=== PATIENT | female | born 1945 | race Caucasian/White ===

== ENCOUNTER 2024-03-31 11:54 | Emergency (ER) | payer OTHER, SELFPAY ==
[2024-03-31 11:54] VITALS: BP 137/74; PULSE 87; RESP 14; TEMP 36.8; O2SAT 97; BMI 21.6
--- NOTE | 2024-03-31 12:13 | EX.ED.GENINJ ---
HPI <JOAO Lee Last Filed: 03/31/24 13:42> History of Present Illness Chief Complaint: Fall Narrative Narrative: Patient presenting today with pain to her left ankle and right wrist after mechanical fall that occurred while hiking with her grandchildren this morning. She reports that she tripped and twisted her left ankle and felt a pop, she tried to catch herself with an outstretched right hand and injured her right wrist. She also has an abrasion to her right forearm, tetanus is not up-to-date. She did not hit her head, she denies LOC. She did start to feel lightheaded from the pain while on the ground but this did resolve. She is able to ambulate although it is difficult. PFSH <JOAO Lee Last Filed: 03/31/24 13:42> [facility] Medical History no medical history Allergy/AdvReac Type Severity Reaction Status Date / Time Sulfa (Sulfonamide Allergy RASH Verified 03/31/24 11:55 Antibiotics) Social History Smoking Status: Never smoker ROS <JOAO Lee Last Filed: 03/31/24 13:42> ROS ED Constitutional Constitutional ED: Denies chills or fever(s) Cardiovascular Cardiovascular: Denies chest pain Respiratory/Chest Respiratory/Chest: Denies cough or dyspnea Gastrointestinal Gastrointestinal: Denies abdominal pain, nausea or vomiting Musculoskeletal Musculoskeletal: Reports arthralgias Integumentary Reports Abrasions Neurologic Neurologic: Denies paresthesias EXAM <JOAO Lee Last Filed: 03/31/24 13:42> Physical Exam Const Vital Signs: 03/31/24 11:54 03/31/24 12:25 03/31/24 13:21 Temperature 98.3 F 98 F Temperature Source Temporal Pulse Rate 87 79 Respiratory Rate 14 16 Respiratory Effort Normal Blood Pressure 137/74 H 159/79 H Blood Pressure Mean 95 105 Pulse Ox 97 98 Oxygen Delivery Method Room Air Room Air Positive well nourished, well developed and no apparent distress General Appearance ED: well developed HEENT Reports normocephalic and head/scalp atraumatic Mouth ED: Yes moist mucous membranes normal Eyes PERRL and EOMs intact bilaterally Neck full ROM and supple Chest Wall inspection of chest normal Resp normal respiratory effort and clear to auscultation bilaterally Cardio regular rate and regular rhythm GI soft to palpation, non-tender, non-distended and no masses Back/Spine normal ROM and normal to inspection Extremity Extremity Narrative: Swelling to the left lateral malleolus and proximal aspect of the dorsum of the left foot with surrounding ecchymosis. Limited range of motion to the left ankle due to pain. Ecchymosis to the dorsal and radial aspect of the right wrist. Left DP and right radial pulse 2+, good capillary refill, sensation intact. Neuro oriented x3, CN's II-XII intact bilaterally, moves all extremities, no focal motor deficits and no sensory deficits noted Sensorium / Orientation: awake and alert Psych mental status grossly normal and thought process normal Skin Skin Narrative: Small skin tear to the right medial forearm, no active bleeding. <Dr. Yordan Helton MD - Last Filed: 03/31/24 12:28> Physical Exam Const Vital Signs: 03/31/24 11:54 03/31/24 12:25 03/31/24 13:21 Temperature 98.3 F 98 F Temperature Source Temporal Pulse Rate 87 79 Respiratory Rate 14 16 Respiratory Effort Normal Blood Pressure 137/74 H 159/79 H Blood Pressure Mean 95 105 Pulse Ox 97 98 Oxygen Delivery Method Room Air Room Air PROC <JOAO Lee - Last Filed: 03/31/24 13:42> Procedures Upper Extremity Splints Upper Extremity Splint: Orthoglass and - (AP splint) Location: Right [facility] <JOAO Lee - Last Filed: 03/31/24 13:42> [facility] Narrative Medical decision making narrative: Patient presenting with left ankle and right wrist pain after mechanical fall that occurred this morning while hiking. She tripped and twisted her left ankle and try to catch herself with an outstretched right hand. X-ray of the left ankle, foot, and right hand will be obtained to rule out fracture. She was given Tylenol for pain. Tetanus updated and her abrasion was cleaned and bandaged with bacitracin ointment. The attending physician is reading the right wrist films as a possible fracture to the distal radius. She was placed in an AP well-padded splint, good capillary refill post splinting. She was given an Aircast for her left ankle sprain. She will be given an orthopedic referral to follow-up with, RICE instructions were discussed, she can take Tylenol for pain as needed. She will be discharged home in stable condition. I have personally performed a face to face assessment of the patient and have reviewed the KEIKO Note. I performed a substantive portion of the visit including all aspects of the following. My shahid findings include: History is 78-year-old female was hiking when she tripped and fell injuring her right wrist and left ankle. No LOC. No prior history of surgery to her wrist or her ankle. Denies any other complaints. [place] fine prior to tripping and falling. Exam is [well-appearing 78-year-old female. Vital signs stable afebrile. H EENT exam pupils round reactive light. No signs of trauma to her face or scalp. Nontender. Neck nontender. Back nontender. Lungs clear to auscultation bilaterally. Heart regular rhythm rate about 85 no murmur. Chest wall and ribs nontender. Abdomen soft nontender. Pelvic girdle intact. He is able to flex extend either hip or knee. Upper extremities left upper extremity nontender normal video and sound recorder strength. Normal range of motion. Right wrist tenderness and swelling and bruise on the distal radius. Limited flexion extension due to pain. She is able to open close her hand without difficulty. Right lower extremity hip, knee ankle and foot are nontender. Normal range of motion. Her left hip and knee are nontender. Left ankle is swollen and bruised laterally. Limited dorsi and plantarflexion due to pain. Achilles tendon is intact. Medially nontender. Able to wiggle her toes. Normal touch sensation. Neurologically she is awake and alert. Answering questions and following commands. GCS of 15. She also has a skin tear on her right elbow which will be need to be cleaned and dressed but not repaired.] Medical Decision Making [78-year-old fall right wrist x-ray. Left ankle and foot x-ray to rule out fractures. Tylenol for pain.] Other additions or changes: [None] Radiography Diagnostic Testing: Clinical Impression(s) from Imaging Studies Ankle X-Ray 03/31/24 12:25 IMPRESSION: Osteopenia, no demonstrated fracture or suspicious osseous lesion Extensive lateral soft tissue swelling suggests ankle sprain, however a subtle occult fracture cannot be excluded. 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 Yordan Helton MD - Last Filed: 03/31/24 12:28> [facility] Narrative Medical decision making narrative: Patient presenting with left ankle and right wrist pain after mechanical fall that occurred this morning while hiking. She tripped and twisted her left ankle and try to catch herself with an outstretched right hand. X-ray of the left ankle, foot, and right hand will be obtained to rule out fracture. She was given Tylenol for pain. Tetanus updated and her abrasion was cleaned. I have personally performed a face to face assessment of the patient and have reviewed the KEIKO Note. I performed a substantive portion of the visit including all aspects of the following. My shahid findings include: History is 78-year-old female was hiking when she tripped and fell injuring her right wrist and left ankle. No LOC. No prior history of surgery to her wrist or her ankle. Denies any other complaints. [place] fine prior to tripping and falling. Exam is [well-appearing 78-year-old female. Vital signs stable afebrile. H EENT exam pupils round reactive light. No signs of trauma to her face or scalp. Nontender. Neck nontender. Back nontender. Lungs clear to auscultation bilaterally. Heart regular rhythm rate about 85 no murmur. Chest wall and ribs nontender. Abdomen soft nontender. Pelvic girdle intact. He is able to flex extend either hip or knee. Upper extremities left upper extremity nontender normal video and sound recorder strength. Normal range of motion. Right wrist tenderness and swelling and bruise on the distal radius. Limited flexion extension due to pain. She is able to open close her hand without difficulty. Right lower extremity hip, knee ankle and foot are nontender. Normal range of motion. Her left hip and knee are nontender. Left ankle is swollen and bruised laterally. Limited dorsi and plantarflexion due to pain. Achilles tendon is intact. Medially nontender. Able to wiggle her toes. Normal touch sensation. Neurologically she is awake and alert. Answering questions and following commands. GCS of 15. She also has a skin tear on her right elbow which will be need to be cleaned and dressed but not repaired.] Medical Decision Making [78-year-old fall right wrist x-ray. Left ankle and foot x-ray to rule out fractures. Tylenol for pain.] Other additions or changes: [None] History & Record Review Discussion w/independent historian: Patient and Family Additional record(s) reviewed:: Prior inpatient record, Prior outpatient record, Prior ED visit and Prior labs Radiography Diagnostic Testing: Clinical Impression(s) from Imaging Studies Ankle X-Ray 03/31/24 12:25 IMPRESSION: Osteopenia, no demonstrated fracture or suspicious osseous lesion Extensive lateral soft tissue swelling suggests ankle sprain, however a subtle occult fracture cannot be excluded. 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 Electronically Signed: Davon Garcia MD at 13:02 EDT , Right wrist x-ray, 3 views, interpreted by myself Left ankle x-ray, 3 views, interpreted by myself Left foot x-ray, 3 views, interpreted by myself Discharge Plan Triage Chief Complaint: Fall ED Midlevel Provider: Araceli Lim ED Provider: Yordan Helton Dx/Rx/DC Orders Clinical Impression: Fracture of right wrist, Left ankle sprain, Fall, Abrasion of forearm Instructions: ED Fracture, Wrist, General, ED Ankle Sprain (Adult) Primary Care Provider: HEATHER CRAWFORD Referrals: HEATHER CRAWFORD [Other] Josiah Velez MD [Med Staff - Active Staff] - 5-7 Days Activity Restrictions/Additional Instructions: Follow-up with orthopedics, keep your ankle elevated when sitting/lying down and ice for 20 minutes at a time several times a day for the next few days to help with swelling. You can take Tylenol for your pain as needed. Print Language: Telugu Disposition Disposition: Home, Self Care Discharge Date/Time: 03/31/24 13:40
[2024-03-31] MEDS: Acetaminophen 325 MG Tablet 650 MG PO (12:16)
[2024-03-31] MEDS: Diphth,Pertuss(Acell),Tet Vac 0.5 ML Vial IM (12:21)
--- NOTE | 2024-03-31 12:25 | RAD_ITS ---
STUDY: X-RAY - LEFT ANKLE REASON FOR EXAM: Female, 78 years old. Acute pain after fall TECHNIQUE: 3 view(s) of the ankle. COMPARISON: None. FINDINGS: Bones are demineralized Normal visualized distal tibia and fibula. Normal medial and lateral malleoli. Normal tibiotalar articulation and ankle mortise. Normal visualized talus and calcaneus. The visualized subtalar, talonavicular, calcaneocuboid and tarsal articulations are normal. Diffuse soft tissue swelling laterally suggests ankle sprain RAD/Ankle min 3 Views IMPRESSION: Osteopenia, no demonstrated fracture or suspicious osseous lesion Extensive lateral soft tissue swelling suggests ankle sprain, however a subtle occult fracture cannot be excluded. Electronically Signed: Davon Garcia MD at 13:01 EDT ,
--- NOTE | 2024-03-31 12:25 | RAD_ITS ---
STUDY: X-RAY - LEFT FOOT CLINICAL: Female, 78 years old. Pain after a fall TECHNIQUE: 3 view(s) of the foot. COMPARISON: None. FINDINGS: Bones are diffusely demineralized. Age consistent degenerative changes noted at all joint spaces. No demonstrated fracture or suspicious osseous lesion. No foreign body, there is soft tissue swelling over the lateral malleolus. RAD/Foot min 3 Views IMPRESSION: Diffuse osteopenia with degenerative arthrosis, no demonstrated fracture Soft tissue swelling over the lateral malleolus Electronically Signed: Davon Garcia MD at 13:07 EDT ,
--- NOTE | 2024-03-31 12:25 | RAD_ITS ---
STUDY: X-RAY - RIGHT WRIST REASON FOR EXAM: Female, 78 years old. FALL TECHNIQUE: 3 view(s) of the wrist were obtained. COMPARISON: None. FINDINGS: Bones are demineralized. Normal visualized distal radius and ulna. Normal radiocarpal articulation. Normal distal radioulnar articulation. Normal carpal bones. Normal carpal articulations. There is degenerative arthrosis of the carpometacarpal articulation of the thumb with subluxation. Normal second through fifth carpometacarpal articulations. Normal visualized metacarpal bones. The soft tissue structures are unremarkable. 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
[2024-03-31 13:21] VITALS: BP 159/79; PULSE 79; RESP 16; TEMP 36.6; O2SAT 98
== END 2024-03-31 13:40 | disposition home or self-care (01) ==
PROVIDERS: Emergency Provider Emergency Medicine; Visit Provider Emergency Medicine
DX: S62.101A Fracture of unspecified carpal bone, right wrist, initial encounter for closed fracture (principal); S93.402A Sprain of unspecified ligament of left ankle, initial encounter; S50.811A Abrasion of right forearm, initial encounter; W19.XXXA Unspecified fall, initial encounter
CPT/HCPCS: 73110; 73610; 73630; 90715; 99283